=== PATIENT | female | born 1935 | race Asian ===

== ENCOUNTER → 2017-01-16 | Outpatient (CLI) | payer SELFPAY ==
[2017-01-16 09:28] LABS: CH 19.9; CHCM 29.9; HCT 35.3 % (34.0-46.0); HDW 3.18; HGB 10.7 gm/dL (11.4-16.0); Hypochromasia Marked; MCH 20.3 pg (25.0-35.0); MCHC 30.3 g/dL (31.0-37.0); MCV 66.9 fL (80.0-100.0); Mean Platelet Volume 6.6; Microcytosis Marked; RBC 5.28 m/uL (3.80-5.40); RDW 15.5 % (11.5-15.5); WBC 6.2 k/uL (3.8-10.6)
[2017-01-16 09:47] LABS: Calcium 9.6 mg/dL (8.4-10.2); Potassium 4.4 mmol/L (3.5-5.1)
== END | disposition home or self-care (01) ==
LOC: LABWHC1 09:08
PROVIDERS: ATTEND Pediatrics
DX: E78.00 Pure hypercholesterolemia, unspecified (principal); D64.9 Anemia, unspecified
CPT/HCPCS: 36415; 80048; 80061; 85027

== ENCOUNTER → 2018-04-02 | Outpatient (CLI) | payer SELFPAY ==
[2018-04-02 10:34] LABS: Anisocytosis Slight; Basophils % (A) 1 %; Eosinophils # (A) 0.2 k/uL (0-0.7); Eosinophils % (A) 4 %; HCT 33.1 % (34.0-46.0); HGB 10.2 gm/dL (11.4-16.0); Hypochromasia Moderate; Lymphocytes # (A) 1.8 k/uL (1.0-4.8); Lymphocytes % (A) 31 %; MCH 19.8 pg (25.0-35.0); MCHC 30.9 g/dL (31.0-37.0); MCV 63.9 fL (80.0-100.0); Mean Platelet Volume 7.7; Microcytosis Marked; Monocytes # (A) 0.3 k/uL (0-1.0); Monocytes % (A) 5 %; Neutrophils # (A) 3.3 k/uL (1.3-7.7); Neutrophils % (A) 58 %; Platelet Count 261 k/uL (150-450); RBC 5.18 m/uL (3.80-5.40); RDW 16.1 % (11.5-15.5); WBC 5.7 k/uL (3.8-10.6)
[2018-04-02 17:04] LABS: Albumin 4.3 g/dL (3.80-4.90); Albumin/Globulin Ratio 2.15 (1.20-2.10); Anion Gap 7.6 mmol/L (4.00-12.00); Calcium 9.5 mg/dL (8.7-10.3); Carbon Dioxide 24.4 mmol/L (21.6-31.8); LDL Cholesterol,Calculated 77.6 mg/dL (0.0-131.0); Potassium 4.8 mmol/L (3.5-5.5); Total Bilirubin 0.7 mg/dL (0.3-1.2); Total Protein 6.3 g/dL (6.2-8.2); VLDL Calculation 20.4 mg/dL (5.00-40.00)
== END ==
LOC: LABWHC1 09:38
PROVIDERS: ATTEND Pediatrics
DX: E78.00 Pure hypercholesterolemia, unspecified (principal)
CPT/HCPCS: 36415; 80053; 80061; 85025

== ENCOUNTER → 2018-11-12 | Outpatient (CLI) | payer OTHER ==
[2018-11-12 10:13] LABS: Anisocytosis Slight; HCT 32.8 % (34.0-46.0); HGB 9.7 gm/dL (11.4-16.0); Hypochromasia Moderate; MCHC 29.6 g/dL (31.0-37.0); MCV 64.2 fL (80.0-100.0); Mean Platelet Volume 6.5; Microcytosis Marked; Platelet Count 257 k/uL (150-450); Poikilocytosis Slight; RBC 5.11 m/uL (3.80-5.40); RDW 16.3 % (11.5-15.5); WBC 6.4 k/uL (3.8-10.6)
[2018-11-12 17:14] LABS: African American GFR (CKD) 48.7 (60.0-200.0); Albumin 4.3 g/dL (3.80-4.90); Albumin/Globulin Ratio 2.05 (1.60-3.17); Anion Gap 8.1 mmol/L (4.00-12.00); BUN/Creat Ratio 20.83 Ratio (12.00-20.00); Calcium 9.6 mg/dL (8.7-10.3); Carbon Dioxide 23.9 mmol/L (21.6-31.8); Globulin 2.1 g/dL (1.6-3.3); Total Bilirubin 0.5 mg/dL (0.3-1.2); Total Protein 6.4 g/dL (6.2-8.2)
[2018-11-12 22:42] LABS: Hemoglobin A1C 6.1 % (4.0-6.0)
== END | disposition home or self-care (01) ==
LOC: LABWHC1 08:59
PROVIDERS: ATTEND Pediatrics
DX: D64.9 Anemia, unspecified (principal); E78.1 Pure hyperglyceridemia; E88.81 Metabolic syndrome and other insulin resistance
CPT/HCPCS: 36415; 80053; 80061; 82728; 83036; 85027

== ENCOUNTER → 2019-02-25 | Outpatient (CLI) | payer OTHER ==
[2019-02-25 09:19] LABS: HCT 34.7 % (34.0-46.0); HGB 10.3 gm/dL (11.4-16.0); Hypochromasia Moderate; MCH 19.5 pg (25.0-35.0); MCHC 29.8 g/dL (31.0-37.0); MCV 65.5 fL (80.0-100.0); Mean Platelet Volume 6.8; Microcytosis Marked; Platelet Count 269 k/uL (150-450); RDW 15.6 % (11.5-15.5); WBC 6.5 k/uL (3.8-10.6)
[2019-02-25 20:57] LABS: Hemoglobin A1C 5.8 % (4.0-6.0)
== END | disposition home or self-care (01) ==
LOC: LABWHC1 09:01
PROVIDERS: ATTEND Pediatrics
DX: D64.9 Anemia, unspecified (principal); R73.02 Impaired glucose tolerance (oral)
CPT/HCPCS: 36415; 82947; 83036; 85027

== ENCOUNTER 2020-07-09 19:57 | Emergency (ER) | payer OTHER ==
[2020-07-09] MEDS ORDERED: fentaNYL (PF) 50 MCG/ML 2 ML AMP IVP STA (20:17)
--- NOTE | 2020-07-09 20:21 | ED ---
General Adult HPI - General Chief complaint: Recheck/Abnormal Lab/Rx Stated complaint: High BP Time Seen by Provider: 07/09/20 20:09 Source: patient, family Mode of arrival: wheelchair Limitations: no limitations - History of Present Illness Initial comments: Dictation was produced using opendorse dictation software. please excuse any grammatical, word or spelling errors. This patient was cared for during a federal and state declared state of [facility] secondary to Covid 19 Chief Complaint: 85-year-old female past medical history dyslipidemia, hypertension and osteoarthritis presents with headache and elevated blood pressure History of Present Illness: 85-year-old female she is accompanied by her son who is one of the local pediatricians. She states that approximately 1:30 after lunch began having the worst headache of her life. She did say that it was very severe. At same time she noted that she was having elevated blood pressures. Patient is on multiple blood pressure medications. She describes the pain as occipital with some radiation down the neck. She reports that it is severe. She denies any numbness and paresthesias in the arms or legs. Denies any vision loss. According to patient and family member no history of brain aneurysms. She otherwise has had decent control blood pressure which is managed by pio garcia's primary care physician. Prior to arrival in the emergency department she did take one dose of antihypertensive. The ROS documented in this emergency department record has been reviewed and confirmed by me. Those systems with pertinent positive or negative responses have been documented in the HPI. All other systems are other negative and/or noncontributory. PHYSICAL EXAM: General Impression: Alert and oriented x3, mild distress secondary to pain HEENT: Normocephalic atraumatic, extra-ocular movements intact, pupils equal and reactive to light bilaterally, mucous membranes moist. Cardiovascular: Heart regular rate and rhythm Chest: Able to complete full sentences, no retractions, no tachypnea Abdomen: abdomen soft, non-tender, non-distended, no organomegaly Musculoskeletal: Pulses present and equal in all extremities, no peripheral edema Motor: no focal deficits noted Neurological: CN II-XII grossly intact, no focal motor or sensory deficits noted, NIH of 0 Skin: Intact with no visualized rashes Psych: Normal affect and mood ED course: 85-year-old female presents with chief complaint of acute severe headache starting at 1:30 PM. Vital signs upon arrival are within acceptable limits. Clinical presentation concerning for subarachnoid bleed given that patient is complaining of acute severe headache with elevated blood pressures. She does appear to be in mild acute distress at bedside. Computed tomography scan of the brain was unremarkable. No evidence of any intracranial processes. CT angiogram of the head and neck was obtained showing no aneurysms or abnormalities to head or neck vasculature. Discussed performing possible lumbar puncture. Patient and patient's son understand that there is a less than 2% chance that there is a small undetected subarachnoid bleed though unlikely. They opted not to have the lumbar puncture performed. Patient reeva luated at 9:30 PM stable medical condition. She states that her headache is much more improved. She does however have some right-sided neck pain. Given patient's clinical presentation dates highly unlikely that patient has subarachnoid hemorrhage. Laboratory evaluation obtained. CBC is unremarkable. Metabolic panel is unremarkable. There is mild non-gap acidosis. Sodium is 127. There is d ehydration. Patient given fluids, analgesia improvement of symptoms. Patient and family members agreeable for disposition. Return precautions discussed. They're understandable that there is a still a possibility that she has a leaking aneurysm though unlikely. Advised follow-up primary care physician. Report have an appointment with cardiology. EKG interpretation: Ventricular rate T, sinus bradycardia, WY interval 160, QRS 114, QTc 498. No WY prolongation, no QTC prolongation, no ST or T-wave changes noted. Note EKG for comparison. Overall, this EKG is unremarkable - Related Data Home Medications Medication Instructions Recorded Confirmed Alendronate Sodium 70 mg PO MO 07/09/20 07/09/20 Aspirin EC [Ecotrin Low Dose] 81 mg PO DAILY 07/09/20 07/09/20 Atorvastatin Calcium [Lipitor] 10 mg PO DAILY 07/09/20 07/09/20 Baclofen 5 mg PO TID PRN 07/09/20 07/09/20 Carvedilol [Coreg] 12.5 mg PO BID 07/09/20 07/09/20 Ergocalciferol (Vitamin D2) 1,250 mcg PO MO 07/09/20 07/09/20 [Drisdol (50,000 Iu)] Losartan Potassium [Cozaar] 100 mg PO DAILY 07/09/20 07/09/20 NIFEdipine [Procardia] 10 mg PO TID PRN 07/09/20 07/09/20 hydrALAZINE HCL [Apresoline] 25 mg PO TID 07/09/20 07/09/20 hydroCHLOROthiazide [Hydrodiuril] 25 mg PO DAILY 07/09/20 07/09/20 Allergies Allergy/AdvReac Type Severity Reaction Status Date / Time No Known Allergies Allergy Verified 07/09/20 21:01 Review of Systems ROS Statement: Those systems with pertinent positive or pertinent negative responses have been documented in the HPI. ROS Other: All systems not noted in ROS Statement are negative. Past Medical History Past Medical History: Hyperlipidemia, Hypertension, Osteoarthritis (OA) History of Any Multi-Drug Resistant Organisms: None Reported Past Surgical History: Orthopedic Surgery Past Psychological History: No Psychological Hx Reported Smoking Status: Never smoker Past Alcohol Use History: None Reported Past Drug Use History: None Reported General Exam Limitations: no limitations Course Vital Signs 07/09/20 07/09/20 20:04 21:15 Temperature 98.7 F Pulse Rate 62 54 L Respiratory 18 22 Rate Blood Pressure 143/59 155/62 O2 Sat by Pulse 100 100 Oximetry Medical Decision Making - Lab Data Result diagrams: 07/09/20 20:31 07/09/20 20:31 Lab Results 07/09/20 07/09/20 07/09/20 Range/Units 20:31 20:31 20:31 WBC 8.7 (3.8-10.6) k/uL RBC 4.85 (3.80-5.40) m/uL Hgb 9.6 L (11.4-16.0) gm/dL Hct 29.3 L (34.0-46.0) % MCV 60.4 L (80.0-100.0) fL MCH 19.9 L (25.0-35.0) pg MCHC 32.9 (31.0-37.0) g/dL RDW 15.5 (11.5-15.5) % Plt Count 292 (150-450) k/uL MPV 7.3 Neutrophils % 61 % Lymphocytes % 28 % Monocytes % 6 % Eosinophils % 2 % Basophils % 1 % Neutrophils # 5.3 (1.3-7.7) k/uL Lymphocytes # 2.5 (1.0-4.8) k/uL Monocytes # 0.5 (0-1.0) k/uL Eosinophils # 0.2 (0-0.7) k/uL Basophils # 0.1 (0-0.2) k/uL Poikilocytosis Slight Microcytosis Marked PT 11.1 (9.0-12.0) sec INR 1.0 (<1.2) APTT 25.7 (22.0-30.0) sec Sodium 127 L (137-145) mmol/L Potassium 4.0 (3.5-5.1) mmol/L Chloride 99 (98-107) mmol/L Carbon Dioxide 17 L (22-30) mmol/L Anion Gap 11 mmol/L BUN 23 H (7-17) mg/dL Creatinine 1.01 (0.52-1.04) mg/dL Est GFR (CKD-EPI)AfAm 59 (>60 ml/min/1.73 sqM) Est GFR (CKD-EPI)NonAf 51 (>60 ml/min/1.73 sqM) Glucose 104 H (74-99) mg/dL Calcium 9.2 (8.4-10.2) mg/dL Disposition Clinical Impression: Hypertension Disposition: HOME SELF-CARE Condition: Good Instructions (If sedation given, give patient instructions): Hypertension (ED) Is patient prescribed a controlled substance at d/c from ED?: No Referrals: Gomez Enamorado MD [Primary Care Provider] - 1-2 days Time of Disposition: 21:53
[2020-07-09 20:42] LABS: Basophils # (A) 0.1 k/uL (0-0.2); Basophils % (A) 1 %; Eosinophils # (A) 0.2 k/uL (0-0.7); Eosinophils % (A) 2 %; HCT 29.3 % (34.0-46.0); HGB 9.6 gm/dL (11.4-16.0); Lymphocytes # (A) 2.5 k/uL (1.0-4.8); Lymphocytes % (A) 28 %; MCH 19.9 pg (25.0-35.0); MCHC 32.9 g/dL (31.0-37.0); MCV 60.4 fL (80.0-100.0); Mean Platelet Volume 7.3; Microcytosis Marked; Monocytes # (A) 0.5 k/uL (0-1.0); Monocytes % (A) 6 %; Neutrophils # (A) 5.3 k/uL (1.3-7.7); Neutrophils % (A) 61 %; Platelet Count 292 k/uL (150-450); Poikilocytosis Slight; RBC 4.85 m/uL (3.80-5.40); RDW 15.5 % (11.5-15.5); WBC 8.7 k/uL (3.8-10.6)
[2020-07-09 20:48] LABS: Partial Thromboplastin Time 25.7 sec (22.0-30.0); Prothrombin Time 11.1 sec (9.0-12.0)
[2020-07-09 20:54] LABS: Calcium 9.2 mg/dL (8.4-10.2)
--- NOTE | 2020-07-09 20:55 | CT ---
EXAMINATION TYPE: CT brain wo con DATE OF EXAM: 07/09/2020 COMPARISON: None HISTORY: ams, cva CT DLP: 1211.6 mGycm Automated exposure control for dose reduction was used. There is cerebral cortical atrophy. There is no mass effect nor midline shift. There is no sign of in tracranial hemorrhage. The calvarium is intact. Skull base is intact. There is no evidence of a fract ure. There is mild hypodensity in the white matter of both parietal lobes consistent with some chronic sma ll vessel ischemia. IMPRESSION: Cerebral atrophy and chronic small vessel ischemia. No acute intracranial abnormality.
[2020-07-09] MEDS ORDERED: ONDANSETRON 4 MG/2 ML VIAL IVP STA (21:16)
--- NOTE | 2020-07-09 21:21 | CT ---
EXAMINATION TYPE: CT angio head neck DATE OF EXAM: 07/09/2020 COMPARISON: None HISTORY: ams, cva CT DLP: 395.7 mGycm Automated exposure control for dose reduction was used. CONTRAST: Performed with IV Contrast, patient injected with 65cc mL of Isovue 370. Images obtained from the aortic arch to the vertex of the brain with IV contrast and 3-D post process ed images. There is normal branching pattern of the great vessels on the aortic arch. There is bilateral arteria l flow in the subclavian arteries. There is arterial flow in the common internal and external carotid arteries bilaterally. There is wide patency of the carotid artery bifurcations. There is arterial fl ow in both vertebral arteries. There is no evidence of carotid or vertebral artery aneurysm or dissec tion. There is arterial flow in the vertebrobasilar artery system. There is arterial flow in the anterior m iddle and posterior cerebral arteries. There is no mass effect. There is no evidence of intracranial arterial stenosis. There is normal enhancement of the venous sinuses. There is no evidence of aneurys m or neovascularity. IMPRESSION: Negative CT angiogram of the neck. Negative CT angiogram of the brain.
[2020-07-09] MEDS ORDERED: SODIUM CHLORIDE 0.9% 1,000 ML IV STA (21:28)
[2020-07-09] MEDS ORDERED: KETOROLAC 15 MG/ML 1 ML VIAL IVP STA (21:28)
[2020-07-09] MEDS ORDERED: diphenhydrAMINE 50 MG/ML 1 ML VIAL IVP STA (21:28)
--- NOTE | 2020-07-09 22:23 | ED ---
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 - Lab Data Result diagrams: 07/09/20 20:31 07/09/20 20:31 Lab Results 07/09/20 07/09/20 07/09/20 Range/Units 20:31 20:31 20:31 WBC 8.7 (3.8-10.6) k/uL RBC 4.85 (3.80-5.40) m/uL Hgb 9.6 L (11.4-16.0) gm/dL Hct 29.3 L (34.0-46.0) % MCV 60.4 L (80.0-100.0) fL MCH 19.9 L (25.0-35.0) pg MCHC 32.9 (31.0-37.0) g/dL RDW 15.5 (11.5-15.5) % Plt Count 292 (150-450) k/uL MPV 7.3 Neutrophils % 61 % Lymphocytes % 28 % Monocytes % 6 % Eosinophils % 2 % Basophils % 1 % Neutrophils # 5.3 (1.3-7.7) k/uL Lymphocytes # 2.5 (1.0-4.8) k/uL Monocytes # 0.5 (0-1.0) k/uL Eosinophils # 0.2 (0-0.7) k/uL Basophils # 0.1 (0-0.2) k/uL Poikilocytosis Slight Microcytosis Marked PT 11.1 (9.0-12.0) sec INR 1.0 (<1.2) APTT 25.7 (22.0-30.0) sec Sodium 127 L (137-145) mmol/L Potassium 4.0 (3.5-5.1) mmol/L Chloride 99 (98-107) mmol/L Carbon Dioxide 17 L (22-30) mmol/L Anion Gap 11 mmol/L BUN 23 H (7-17) mg/dL Creatinine 1.01 (0.52-1.04) mg/dL Est GFR (CKD-EPI)AfAm 59 (>60 ml/min/1.73 sqM) Est GFR (CKD-EPI)NonAf 51 (>60 ml/min/1.73 sqM) Glucose 104 H (74-99) mg/dL Calcium 9.2 (8.4-10.2) mg/dL Disposition Clinical Impression: Hypertension Disposition: HOME SELF-CARE Condition: Good Instructions (If sedation given, give patient instructions): Hypertension (ED) Additional Instructions: Follow-up with ENT for outpatient management of neck mass. Is patient prescribed a controlled substance at d/c from ED?: No Referrals: Gomez Enamorado MD [Primary Care Provider] - 1-2 days Evelyn Franco MD [STAFF PHYSICIAN] - 1-2 days Tashi Herrera DO [Doctor of Osteopathic Medicine] - 1-2 days Time of Disposition: 22:21
[2020-07-09 22:52] VITALS: BP 161/72; PULSE 58; RESP 18; TEMP 98.2
== END 2020-07-09 22:39 | disposition home or self-care (01) ==
LOC: EC 19:57
DX: I10 Essential (primary) hypertension (principal); E86.0 Dehydration; E87.2 Acidosis; E78.5 Hyperlipidemia, unspecified; M19.90 Unspecified osteoarthritis, unspecified site
CPT/HCPCS: 36415; 93005; 80048; 85025; 85610; 85730; 70496; 70450; 70498; 99284; 96374; 96375; 96361; J1200; J2405; J3010; J1885; Q9967

== ENCOUNTER → 2021-03-24 | Outpatient (CLI) | payer OTHER ==
--- NOTE | 2021-03-25 02:42 | MR ---
EXAMINATION TYPE: MR iac wo/w con DATE OF EXAM: 03/24/2021 COMPARISON: None HISTORY: Left sensory hearing loss CONTRAST: Standard multiplanar, multisequence MRI departmental protocol images were obtained without contrast a nd with 6 mL intravenous Gadavist gadolinium contrast. There is diffuse cerebral atrophy. There is no mass effect nor midline shift. There is no evidence of intracranial hemorrhage. The internal auditory canals are symmetric. There is no evidence of cerebel lopontine angle mass. Brainstem is intact. The acoustic nerve and vestibular nerves appear intact. Se lla turcica is intact. Corpus callosum is intact. There are rounded cystic masses at the skull base o n the left side that measure 2.2 cm and 2.7 cm that could be brachial cysts. There is 1 cm cyst in th e right parotid gland. There is on the FLAIR images multiple foci of increased signal in the periventricular white matter th at measure up to 1 cm. Total number is partially 25. These are more concentrated in the posterior fro ntal lobes and parietal lobes. The contrast images show no pathologic enhancement. There is normal enhancement of the venous sinuses . IMPRESSION: Cerebral atrophy. No acute intracranial abnormality. No evidence of focal posterior fossa abnormality . Multiple white matter high signal foci that could relate to microvascular ischemia or demyelinating d isease.
== END | disposition home or self-care (01) ==
LOC: RADMRIMAIN 06:40
PROVIDERS: ATTEND Nurse Practitioner Family
DX: G31.9 Degenerative disease of nervous system, unspecified (principal); R93.0 Abnormal findings on diagnostic imaging of skull and head, not elsewhere classified
CPT/HCPCS: 70553; A9585

== ENCOUNTER → 2022-02-07 | Outpatient (CLI) | payer OTHER ==
[2022-02-07 16:48] LABS: % Iron Saturation 20.31 (12.00-45.00); African American GFR (CKD) 36.4 (60.0-200.0); Albumin 4.3 g/dL (3.8-4.9); Albumin/Globulin Ratio 2.05 (1.60-3.17); Anion Gap 11.3 mmol/L (10.00-18.00); BUN/Creat Ratio 18.6 Ratio (12.00-20.00); Blood Urea Nitrogen 27.9 mg/dL (9.0-27.0); Calcium 9.5 mg/dL (8.7-10.3); Carbon Dioxide 22.7 mmol/L (20.0-27.5); Globulin 2.1 g/dL (1.6-3.3); Non-African American GFR(CKD) 31.4 (60.0-200.0); Potassium 4.7 mmol/L (3.5-5.5); Total Bilirubin 0.4 mg/dL (0.30-1.20); Total Protein 6.4 g/dL (6.2-8.2)
[2022-02-07 18:26] LABS: Anisocytosis (M) 2+; Basophils # (A) 0.04 X 10*3/uL (0.00-0.10); Basophils % (A) 0.6 %; Elliptocytes 2+; Eosinophils # (A) 0.22 X 10*3/uL (0.04-0.35); Eosinophils % (A) 3.5 %; HCT 25.7 % (37.2-46.3); HGB 7.9 g/dL (12.0-15.0); Immature Grans, Automated 0.6 %; Lymphocytes # (A) 1.82 X 10*3/uL (0.90-5.00); Lymphocytes % (A) 29.4 %; MCH 19.8 pg (27.0-32.0); MCHC 30.7 g/dL (32.0-37.0); MCV 64.3 fL (80.0-97.0); Microcytosis (M) 3+; Monocytes # (A) 0.48 X 10*3/uL (0.20-1.00); Monocytes % (A) 7.7 %; NRBC Per 100 WBC 0 /100 WBCS (0.0-0.0); Neutrophils % (A) 58.2 %; Platelet Count 246 X 10*3/uL (140-440); RDW 16.8 % (11.5-14.5); Schistocytes 2+
== END | disposition home or self-care (01) ==
LOC: LABWHC1 08:43
PROVIDERS: ATTEND Pediatrics
DX: E10.9 Type 1 diabetes mellitus without complications (principal); D64.9 Anemia, unspecified
CPT/HCPCS: 36415; 80053; 82728; 83036; 83540; 83550; 84466; 85025

== ENCOUNTER → 2022-03-14 | Outpatient (CLI) | payer OTHER ==
[2022-03-15 11:48] LABS: African American GFR (CKD) 43.3 (60.0-200.0); Anion Gap 10.3 mmol/L (10.00-18.00); BUN/Creat Ratio 15.46 Ratio (12.00-20.00); Blood Urea Nitrogen 20.1 mg/dL (9.0-27.0); Calcium 8.9 mg/dL (8.7-10.3); Carbon Dioxide 21.7 mmol/L (20.0-27.5); Magnesium 1.9 mg/dL (1.5-2.4); Non-African American GFR(CKD) 37.4 (60.0-200.0); Potassium 4.4 mmol/L (3.5-5.5)
== END | disposition home or self-care (01) ==
LOC: LABWHC1 10:46
PROVIDERS: ATTEND Family Medicine
DX: E11.65 Type 2 diabetes mellitus with hyperglycemia (principal); E11.22 Type 2 diabetes mellitus with diabetic chronic kidney disease; D47.2 Monoclonal gammopathy; N18.32 Chronic kidney disease, stage 3b; I45.81 Long QT syndrome; E53.8 Deficiency of other specified B group vitamins
CPT/HCPCS: 36415; 80048; 82043; 82232; 82570; 83735; 83921; 86335

== ENCOUNTER → 2023-05-17 | Outpatient (CLI) | payer OTHER ==
--- NOTE | 2023-05-18 11:25 | CA ---
Transthoracic Echo Report Name: Brooklynn Ospina Age: 88 Gender: F : 1935 Exam Date: 05/17/2023 18:58 Exam Location: [facility] Ht (in): 60 Wt (lb): 130 Ordering Physician: Brandy Espinosa MD Attending/Referring Phys: Brandy Espinosa MD Archivist Political History Jose Kirby Procedure CPT: Indications: R06.02 SHORTNESS OF BREATH Cardiac Hx: Technical Quality: 61 Contrast 1: Total Dose (mL): Contrast 2: Total Dose (mL): MEASUREMENTS (Male / Female) Normal Values 2D ECHO LV Diastolic Diameter PLAX 4.8 cm 4.2 - 5.9 / 3.9 - 5.3 cm LV Systolic Diameter PLAX 2.8 cm IVS Diastolic Thickness 0.9 cm 0.6 - 1.0 / 0.6 - 0.9 cm LVPW Diastolic Thickness 0.8 cm 0.6 - 1.0 / 0.6 - 0.9 cm LV Relative Wall Thickness 0.4 RV Internal Dim ED PLAX 2.7 cm LVOT Diameter 1.5 cm Aortic Root Diameter 2.3 cm LA Systolic Diameter LX 3.1 cm 3.0 - 4.0 / 2.7 - 3.8 cm LV Diastolic Volume MOD BP 40.8 cm??? 67 - 155 / 56 - 104 cm??? LV Systolic Volume MOD BP 17.3 cm??? 22 - 58 / 19 - 49 cm??? LV Ejection Fraction MOD BP 57.6 % >= 55 % LV Diastolic Volume MOD 4C 41.4 cm??? LV Systolic Volume MOD 4C 20.3 cm??? LV Ejection Fraction MOD 4C 50.9 % LV Diastolic Length 4C 6.3 cm LV Systolic Length 4C 5.5 cm LV Diastolic Volume MOD 2C 38.8 cm??? LV Systolic Volume MOD 2C 14.2 cm??? LV Ejection Fraction MOD 2C 63.5 % LV Diastolic Length 2C 6.0 cm LV Systolic Length 2C 5.3 cm LA Volume 46.0 cm??? 18 - 58 / 22 - 52 cm??? LA Volume Index 28.9 cm???/m??? 16 - 28 cm???/m??? Ascending Aorta Diameter 2.6 cm DOPPLER AV Peak Velocity 174.2 cm/s AV Peak Gradient 12.1 mmHg AV Mean Velocity 132.0 cm/s AV Mean Gradient 7.7 mmHg AV Velocity Time Integral 50.7 cm LVOT Peak Velocity 113.1 cm/s LVOT Peak Gradient 5.1 mmHg LVOT Velocity Time Integral 32.2 cm LVOT Stroke Volume 57.6 cm??? LVOT Stroke Volume Index 37.1 ml/m??? AV Area Cont Eq vti 1.1 cm??? AV Area Cont Eq pk 1.2 cm??? MV Peak Velocity 135.4 cm/s MV Peak Gradient 7.3 mmHg MV Mean Velocity 63.3 cm/s MV Mean Gradient 2.0 mmHg MV Velocity Time Integral 44.9 cm MR Peak Velocity 530.9 cm/s MR Peak Gradient 112.7 mmHg Mitral E Point Velocity 141.4 cm/s Mitral A Point Velocity 72.9 cm/s Mitral E to A Ratio 1.9 MV Deceleration Time 192.7 ms TR Peak Velocity 332.3 cm/s TR Peak Gradient 44.2 mmHg Right Ventricular Systolic Press 49.2 mmHg PV Peak Velocity 102.0 cm/s PV Peak Gradient 4.2 mmHg FINDINGS Left Ventricle Normal LV size and wall thickness.left ventricular ejection fraction is estimated at 55-60 %. Right Ventricle Normal right ventricular size. RVSP= 49mmHg. Right Atrium Normal right atrial size. Left Atrium Mild to moderate left atrial dilatation. LA volume index= 29.5ml/m2 Mitral Valve Structurally normal mitral valve. Moderate MR. Aortic Valve Trileaflet aortic valve. Mild sclerosis. Tricuspid Valve Structurally normal tricuspid valve. Moderate TR. Pulmonic Valve Pulmonic valve not well visualized. Moderate PI. Pericardium Normal pericardium. Aorta Normal size aortic root and proximal ascending aorta. CONCLUSIONS Normal LV function Moderate mitral regurgitation Moderate tricuspid regurgitation Mildly dilated left atrium Previewed by: Dr. Sterling Loredo MD (Electronically Signed) Final Date: 18 May 2023 11:23
== END | disposition home or self-care (01) ==
LOC: RADECHMAIN 17:55
PROVIDERS: ATTEND Family Medicine
DX: I34.0 Nonrheumatic mitral (valve) insufficiency (principal); I36.1 Nonrheumatic tricuspid (valve) insufficiency; I51.7 Cardiomegaly; R06.02 Shortness of breath
CPT/HCPCS: 93306

== ENCOUNTER → 2023-06-24 | Outpatient (CLI) | payer OTHER ==
--- NOTE | 2023-06-24 22:25 | BD ---
EXAMINATION TYPE: Axial Bone Density DATE OF EXAM: 06/24/2023 CLINICAL HISTORY: 88 years old Female. ICD-10 CODE: M85.9 SCREENING Height: 58.5 in Weight: 137 lbs FRAX RISK QUESTIONS: History of Fracture in Adulthood: lt hip fx age 84 RISK FACTORS HISTORY OF: Hip Fracture (Left): yes age 84 Surgery to Hip(left): yes age 84 MEDICATIONS: Osteoporosis Medications: yes Which medication: Fosamax How Lon years EXAM MEASUREMENTS: Bone mineral densitometry was performed using the [employer] System. Bone mineral density as measured about the Lumbar spine is: ----- L1-L4(G/cm2): 1.096 T Score Values are as follows: ----- L1: -1.3 ----- L2: -0.5 ----- L3: 0.5 ----- L4: -1.5 ----- L1-L4: -0.7 Z Score Values are as follows: ----- L1: 0.7 ----- L2: 1.6 ----- L3: 2.5 ----- L4: 0.8 ----- L1-L4: 1.4 Bone mineral density baseline Bone mineral density about the R hip (g/cm2): 0.820 T Score values are as follows: -----R Neck: -2.8 -----R Total: -1.5 Z Score values are as follows: -----R Neck: -0.3 -----R Total: 1.0 Bone mineral density baseline FRAX%s: The graph provided illustrates a 27.5% chance for a major osteoporotic fx and a 10.1% chance for the hips probability for fx in 10 years time. IMPRESSION: Osteoporosis (T Score less than -2.5). There is increased fracture risk and therapy is usually indicated based on age. Re-Screen 1-2 years. NOTE: T-SCORE=SD OF THE YOUNG ADULT MEAN.
--- NOTE | 2023-06-25 19:03 | MM ---
Reason for Exam: Screening (asymptomatic). Baseline mammogram. Patient History: Menarche at age 17. First Full-Term at age 29. Postmenopausal. Prior Study Comparison: Patient's first Mammogram. Tissue Density: There are scattered fibroglandular densities. Findings: Analyzed By CAD. No significant mass, suspicious microcalcification, or other discrete abnormality is seen. Overall Assessment: Negative, BI-RAD 1 Management: Screening Mammogram of both breasts in 1 year. . Patient should continue monthly self-breast exams. A clinical breast exam by your physician is recommended on an annual basis. This exam should not preclude additional follow-up of suspicious palpable abnormalities. Electronically signed and approved by: Ifrah Burciaga M.D. Radiologist
== END | disposition home or self-care (01) ==
LOC: RADBDWWP 15:17
PROVIDERS: ATTEND Family Medicine
DX: Z12.31 Encounter for screening mammogram for malignant neoplasm of breast (principal); Z13.820 Encounter for screening for osteoporosis; M85.89 Other specified disorders of bone density and structure, multiple sites; M81.0 Age-related osteoporosis without current pathological fracture; Z78.0 Asymptomatic menopausal state
CPT/HCPCS: 77063; 77067; 77080

== ENCOUNTER → 2024-02-26 | Outpatient (CLI) | payer OTHER ==
[2024-02-26 13:37] LABS: ALT 12 U/L (8-44); AST 20 U/L (13-35); Albumin 4.1 g/dL (3.8-4.9); Albumin/Globulin Ratio 2.16 Ratio (1.60-3.17); Alkaline Phosphatase 58 U/L (41-126); BUN/Creat Ratio 17.65 Ratio (12.00-20.00); Blood Urea Nitrogen 35.3 mg/dL (9.0-27.0); Calcium 8.6 mg/dL (8.7-10.3); Carbon Dioxide 21.9 mmol/L (21.6-31.8); Chloride 110 mmol/L (96-109); Chol/HDL Ratio 3.09 Ratio; Globulin 1.9 g/dL (1.6-3.3); Glucose 95 mg/dL (70-110); Iron 92 UG/DL (50-170); LDL Cholesterol,Calculated 88.3 mg/dL (0.0-131.0); Potassium 4.9 mmol/L (3.5-5.5); Sodium 142 mmol/L (135-145); Total Bilirubin 0.4 mg/dL (0.3-1.2); Total Iron Binding Capacity 314 UG/DL (228-460)
[2024-02-26 13:53] LABS: Basophils # (A) 0.05 X 10*3/uL (0.00-0.10); Basophils % (A) 0.9 %; Elliptocytes 2+; Eosinophils # (A) 0.17 X 10*3/uL (0.04-0.35); HCT 27.9 % (37.2-46.3); HGB 8.4 g/dL (12.0-15.0); Hypochromasia (M) 2+; Lymphocytes # (A) 1.59 X 10*3/uL (0.90-5.00); Lymphocytes % (A) 28.2 %; MCH 19.3 pg (27.0-32.0); MCHC 30.1 g/dL (32.0-37.0); MCV 64.1 FL (80.0-97.0); Mean Platelet Volume 10.3 FL (9.5-12.2); Microcytosis (M) 3+; Monocytes # (A) 0.48 X 10*3/uL (0.20-1.00); Monocytes % (A) 8.5 %; NRBC Per 100 WBC 0 X 10*3/uL (0.00-0.01); Neutrophils # (A) 3.32 X 10*3/uL (1.80-7.70); Platelet Count 247 X 10*3/uL (140-440); RBC 4.35 X 10*6/uL (4.10-5.20); RDW 16.8 % (11.5-14.5); WBC 5.63 X 10*3/uL (4.50-10.00)
== END | disposition home or self-care (01) ==
LOC: LABWHC1 08:15
PROVIDERS: ATTEND Pediatrics
CPT/HCPCS: 36415; 80053; 80061; 82728; 83036; 83540; 83550; 84466; 85025

== ENCOUNTER → 2024-02-26 | Outpatient (CLI) | payer OTHER ==
--- NOTE | 2024-02-29 19:27 | XR ---
EXAMINATION TYPE: XR chest 2V DATE OF EXAM: 02/26/2024 9:03 AM COMPARISON: None TECHNIQUE: XR chest 2V Frontal and lateral views of the chest. CLINICAL INDICATION:Female, 88 years old with history of CHRONIC COUGH; FINDINGS: Lungs/Pleura: There is no evidence of pleural effusion, focal consolidation, or pneumothorax. Senesc ent parenchymal change. Pulmonary vascularity: Unremarkable. Heart/mediastinum: Cardiomediastinal silhouette is unremarkable. Atherosclerotic calcifications are seen in the aorta. Musculoskeletal: No acute osseous pathology. Mild multilevel degenerative disc disease. IMPRESSION: No acute cardiopulmonary disease/process. [facility], , 02/29/2024 7:24 PM
== END | disposition home or self-care (01) ==
LOC: RADXRMAIN 08:20
PROVIDERS: ATTEND Family Medicine
DX: R05.3 Chronic cough (principal)
CPT/HCPCS: 71046